=== PATIENT | female | born 2000 | race Caucasian/White ===

== ENCOUNTER 2019-11-08 12:37 | Day surgery (SDC) | payer OTHER ==
[~2019-11-08 12:37] MED LIST: CEFAZOLIN SODIUM 2 GM in DEXTROSE 5%-WATER 100 ML IV PRN; DEXAMETHASONE SOD PHOSPHATE INJ 4 MG/1 ML VIAL ONE; FENTANYL CITRATE INJ/PF 100 MCG/2 ML AMPUL ONE; MIDAZOLAM 2 MG/2 ML INJ ONE; ONDANSETRON HCL INJ/PF 4 MG/2 ML SDV ONE; PROPOFOL INJ 200 MG/20 ML VIAL IV ONE
[2019-11-08] MEDS ORDERED: FAMOTIDINE INJ/PF 20 MG/2 ML SDV IV ONE (13:58)
[2019-11-08] MEDS ORDERED: SCOPOLAMINE HYDROBROMIDE 1.5 MG PATCH.TD72 ONE (13:58)
[2019-11-08] MEDS ORDERED: LIDOCAINE 1% INJ-PF (10 MG/ML) 30 ML SDV ONE (16:47)
[2019-11-08] MEDS ORDERED: BUPIVACAINE HCL 0.5 % INJ/PF 30 ML SDV ONE (16:47)
[2019-11-08] MEDS ORDERED: LIDOCAINE 1% INJ-PF (10 MG/ML) 30 ML SDV INJ ONE (17:26)
[2019-11-08] MEDS ORDERED: ONDANSETRON HCL INJ/PF 4 MG/2 ML SDV IV PRN (17:39)
[2019-11-08] MEDS ORDERED: OXYCODONE-ACETAMINOPHEN 5-325 MG TABLET PO PRN (17:39)
--- NOTE | 2019-11-08 17:40 | Discharge Summary ---
Discharge Summary (SDC) - Discharge Final Diagnosis: Pathologic fracture middle phalanx ring finger Date of Surgery: 11/08/19 Discharge Date: 11/08/19 Condition: Good Treatment or Instructions: Schedule Follow Up w/ Dr. James Lemus @ [facility] for Surgery to be seen in 10-14 days or as scheduled [place]: [place]: [place]: Ice and elevate Keep splint clean/dry/intact, do not remove. If your fingers become numb please unwrap the [place] wrap but leave the splint in place, if the sensation does not return within 30 minutes please return to the emergency department. May begin finger range of motion attempting to make full fist. Please use ibuprofen (Motrin or Advil) 600-800 mg every 8 hours as needed for pain or fever DO NOT TAKE w/ TORADOL may use once TORADOL complete. You may also use acetaminophen (Tylenol) 1000 mg every 4-6 hours as needed for pain or fever. Please be aware that many medications contain acetaminophen, do not exceed a total of 1000 mg of acetaminophen every 6 hours. If ibuprofen and acetaminophen are not sufficient for your pain you may take the Percocet/Conklin. Please be aware that the Percocet/Conklin does contain Tylenol. Stool softener of choice when on pain medication. USE OF [id number]-[id number] IBUPROFEN: Ibuprofen (Advil, Nuprin, Medipren, Motrin IB) is a medication for fever and pain control. In addition, it has anti- inflammatory effects which may be beneficial, especially in the treatment of injuries. It's best to take ibuprofen with food. Persons with ulcer disease or allergy to aspirin should notify their physician of this before taking ibuprofen. Ibuprofen can be given every four to six hours, for a total of four doses daily. Age Pain or fever dose Antiinflammatory dose 6-8 yr 200 mg (1 tab) 200 mg (1 tab) 9-11 yr 200 mg (1 tab) 200-400 mg (1-2 tab) 11-14 yr 200-400 mg (1-2 tab) 400 mg (2 tab) 15-adult 400 mg (2 tab) 600 mg (3 tab) ORAL NARCOTIC MEDICATION: You have been given a prescription for pain control. This medication is a narcotic. It's best taken with food, as nausea can result if taken on an empty stomach. Don't operate machinery or drive within six hours of taking this medication. Do not combine this medicine with alcohol, or with any medication which can cause sedation (such as cold tablets or sleeping pills) unless you get permission from the physician. Narcotics tend to cause constipation. If possible, drink plenty of fluids and eat a diet high in fiber and fruits. Please be aware that prescription narcotics also have the potential for abuse. People become addicted to these medications because of the general sense of wellbeing that they induce. This feeling along with a significant reduction in tension, anxiety, and aggression provides a stimulating seductive quality to these drugs. Once your pain is under control, we encourage you to discard your unused narcotics. Prescriptions: Oxycodone HCl/Acetaminophen [Percocet 5-325 mg Tablet] 1 tab PO Q6 PRN #25 tab PRN Reason: Discharge Diet: As Tolerated Respiratory Treatments at Home: Deep Breathing/Coughing Discharge Activity: No Lifting Over 10 Pounds, No Lifting/Push/Pulling Report the Following to Your Physician Immediately: Fever over 101 Degrees, Unusual Bleeding, Redness, Swelling, Warmth, Increased Soreness
--- NOTE | 2019-11-08 17:42 | Operative Report ---
Operative Report DATE OF SURGERY: 11/08/19 PREOPERATIVE DIAGNOSIS: Left ring finger middle phalanx pathologic fracture POSTOPERATIVE DIAGNOSIS: Same OPERATION: Closed reduction percutaneous pinning left ring finger middle phalanx fracture SURGEON: JOVANI ORDONEZ ANESTHESIA: LMAC COMPLICATIONS: None ESTIMATED BLOOD LOSS: Minimal PROCEDURE: Indication for above procedure: 19-year-old female who was walking her dog when she sustained a torsional injury to her ring finger. 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 She was then seen in my office at which point we discussed treatment options including operative versus nonoperative intervention risk and benefits were explained to the patient she verbalized understanding consented for surgical procedure. Procedure In Detail: Patient was seen and evaluated in the preoperative holding area. The LEFT upper extremity was initialized and marked. Patient received 2g of Ancef IV for bacterial prophylaxis. Patient was taken back to the operative room where transferred to the operative table. A surgical team debriefing was performed ensuring all instrumentation was available, the surgical procedure was discussed with possible concerns reviewed. A digital block was performed utilizing 10 mL of 1% lidocaine without epinephrine. The upper extremity was prepped with chlorhexidine and alcohol and draped in a sterile fashion. A timeout was done identifying correct patient, procedure and extremity everyone in attendance agree with this and verbalized no concerns. Digital tourniquet placed over the ring finger Gentle reduction maneuver was performed to the ring finger middle phalanx correcting patient's notable angulation and malrotation. A 0.045 K wire was then placed obliquely across the proximal and distal fragment obtaining bicortical fixation. This was then cut the other end was advanced across the middle phalanx fracture obtaining bicortical fixation with correction of patient's displacement and rotation. Patient was then awoken from anesthesia was able to make a full composite fist and full extension there is no evidence of residual malrotation. Once fixation, stability and alignment was confirmed with C arm fluoroscopy the K wires were cut, bent and left outside the skin. Wound was dressed with Xeroform 4 x 4's and a [place] wrap sunny taping the ring and small finger. We will begin immediate range of motion within the next 5-7 days. Sponge counts, instrument counts, needle counts counts were correct. Patient was then awoken from anesthesia. Transferred from the operating room table to the operating room stretcher. There was no intraoperative complications patient tolerated procedure well stable to PACU. Postoperative plan: Patient will follow-up as scheduled for wound check. They will call with any questions or concerns.
--- NOTE | 2019-11-08 18:13 | RADIOLOGY REPORT (SQ) ---
EXAM DESCRIPTION: NO CHG FLUORO; FINGER LEFT COMPLETED DATE/TIME: 11/08/2019 5:48 pm REASON FOR STUDY: PERC PINNING 2ND DIGIT COMPARISON: None. FLUOROSCOPY TIME: 17 seconds 4 Images saved to PACS LIMITATIONS: None. PROCEDURE: Percutaneous pinning of the 4th middle phalanx. FINDINGS: Images from fluoro document placement of 2 pins in the 4th middle phalanx. IMPRESSION: Percutaneous pinning. Refer to operative note for further information. COMMENT: PQRS 6045F: Fluoroscopy time of the procedure is documented in the report. TECHNICAL DOCUMENTATION: JOB ID: [id number] [employer]- All Rights Reserved Reading location - IP/workstation name: [email or web address]
--- NOTE | 2019-11-08 18:13 | RADIOLOGY REPORT (SQ) ---
EXAM DESCRIPTION: NO CHG FLUORO; FINGER LEFT COMPLETED DATE/TIME: 11/08/2019 5:48 pm REASON FOR STUDY: PERC PINNING 2ND DIGIT COMPARISON: None. FLUOROSCOPY TIME: 17 seconds 4 Images saved to PACS LIMITATIONS: None. PROCEDURE: Percutaneous pinning of the 4th middle phalanx. FINDINGS: Images from fluoro document placement of 2 pins in the 4th middle phalanx. IMPRESSION: Percutaneous pinning. Refer to operative note for further information. COMMENT: PQRS 6045F: Fluoroscopy time of the procedure is documented in the report. TECHNICAL DOCUMENTATION: JOB ID: [id number] [employer]- All Rights Reserved Reading location - IP/workstation name: [email or web address]
[2019-11-08 19:50] VITALS: BP 110/67
== END 2019-11-08 19:35 | disposition home or self-care (01) ==
LOC: OROUT 12:37
PROVIDERS: ATTEND Orthopaedic Surgery
DX: S62.625A Displaced fracture of middle phalanx of left ring finger, initial encounter for closed fracture (principal); X58.XXXA Exposure to other specified factors, initial encounter; M79.645 Pain in left finger(s); D16.9 Benign neoplasm of bone and articular cartilage, unspecified
CPT/HCPCS: 81025; 73140; 01820; 26727; C1769; J2250; J3490 ×2; J0690; J3010; J7060; J2704; S0028; J1100; J2405